=== PATIENT | male | born 1995 | race Caucasian/White ===

== ENCOUNTER 2023-07-17 15:33 | Emergency (ER) | payer SELFPAY ==
[~2023-07-17] VITALS: Ht 188 cm; Wt 131.8 kg
[2023-07-17 17:25] VITALS: BP 157/97
== END 2023-07-17 17:27 | disposition home or self-care (01) ==
LOC: ED 15:33
DX: S90.31XA Contusion of right foot, initial encounter (principal); Z28.310 Unvaccinated for COVID-19; W20.8XXA Other cause of strike by thrown, projected or falling object, initial encounter

== ENCOUNTER 2024-06-24 12:23 | Emergency (ER) | payer OTHER ==
[~2024-06-24] VITALS: Ht 188 cm; Wt 129.5 kg
[2024-06-24 13:39] VITALS: BP 135/79
== END 2024-06-24 13:30 | disposition home or self-care (01) ==
LOC: ED 12:23
DX: S01.81XA Laceration without foreign body of other part of head, initial encounter (principal); X58.XXXA Exposure to other specified factors, initial encounter
CPT/HCPCS: 90715